=== PATIENT | female | born 1945 | race Caucasian/White ===

== ENCOUNTER 2017-04-05 07:54 | Day surgery (SDC) | payer MEDICARE, BC ==
[2017-04-05] MEDS ORDERED: Propofol 200 MG/20 ML SDV ONE (08:02)
[2017-04-05] MEDS ORDERED: fentaNYL 100 MCG/2 ML SDV ONE (08:02)
[2017-04-05] MEDS ORDERED: Midazolam 1 MG/ML 2 ML SDV ONE (08:02)
[2017-04-05] MEDS ORDERED: Lactated Ringers 1,000 ML IV SCH (08:30)
[2017-04-05 10:29] VITALS: BP 148/85
--- NOTE | 2017-04-06 07:48 | OR ---
DATE OF PROCEDURE: 04/05/2017 PREOPERATIVE DIAGNOSIS: Family history of colon cancer. POSTOPERATIVE DIAGNOSIS: Unremarkable colonoscopy, family history of colon cancer. PROCEDURE: Colonoscopy to the cecum. ANESTHESIA: IV anesthesia with monitored anesthesia care. INDICATION: This 71-year-old white female is referred for a colonoscopy because of a family history of colon cancer. She says her grandfather and three aunts and uncles had colon cancer. She says her last colonoscopic exam was done 5 years ago. I counseled her for the procedure including risks and alternatives, and she gave her informed consent to proceed. DESCRIPTION OF PROCEDURE: The patient was placed in the left lateral decubitus position. IV anesthesia was administered by the Anesthesia Service. Time-out was held. A rectal exam was performed, which was unremarkable. The flexible video Olympus colonoscope was introduced through her anus, up her rectum, and out her colon all way to the cecum. Once the cecum was reached, the scope was slowly withdrawn examining the mucosa throughout. No mucosal abnormalities were noted. The scope was retroflexed in the rectum with the distal rectum appeared unremarkable. The scope was straightened and removed. She tolerated the procedure well. Kaveh Lujan MD /[id number]
== END 2017-04-05 10:46 | disposition home or self-care (01) ==
LOC: JP.SDS 07:54
PROVIDERS: ATTEND Surgery
DX: Z12.11 Encounter for screening for malignant neoplasm of colon (principal); Z80.0 Family history of malignant neoplasm of digestive organs; Z88.2 Allergy status to sulfonamides; J45.909 Unspecified asthma, uncomplicated; F32.9 Major depressive disorder, single episode, unspecified
CPT/HCPCS: G0105; J2250; J2704; J3010; J7120